=== PATIENT | male | born 1985 | race Caucasian/White ===

== ENCOUNTER 2016-12-03 10:35 | Emergency (ER) | payer OTHER ==
[2016-12-03 11:39] VITALS: BP 131/90
--- NOTE | 2016-12-03 14:51 | RAD ---
Indication: Axillary level posterior medial RIGHT arm pain following injury in the past few days. Skin discoloration. Comparison: No relevant prior exams available on the [facility] – [place], [place] PACS for comparison. Technique: Ultrasound of the medial posterior RIGHT upper arm. REPORT AND IMPRESSION: Corresponding with the region of clinical concern as directed by the patient at the time of the exam at level of the proximal triceps muscle there is partial muscle fiber discontinuity and infiltrative edema/hematoma consistent with a partial muscle tear. No significant loculated hematoma evident. Overlying soft tissue edema.
--- NOTE | 2016-12-03 16:45 | ED ---
Berta Orozco Edward, scribed for Caleb Hernandez MD on 12/03/16 at 1346 . Upper Extremity Pain - HPI Summary HPI Summary: 31 y/o male presents to ED c/o upper R arm edema and ecchymosis. The patient injured his R arm 2 weeks ago during an obstacle race and reinjured it 3 days ago ago. Patient states there is numbness in R forearm. Patient is otherwise asymptomatic. PMHx Fx L foot. - History of Current Complaint Chief Complaint: EDExtremityUpper Stated Complaint: ARM INJURY Time Seen by Provider: 12/03/16 13:40 Hx Obtained From: Patient Onset/Duration: Still Present Timing: Constant Associated Signs & Symptoms: Positive: Swelling, Bruising, Numbness/Tingling - R arm - Allergies/Home Medications Allergies/Adverse Reactions: Allergies Allergy/AdvReac Type Severity Reaction Status Date / Time No Known Allergies Allergy Verified 12/03/16 11:39 PMH/Surg Hx/FS Hx/Imm Hx Previously Healthy: No Musculoskeletal History: Reports: Other Musculoskeletal History - Lumbar herniation. Stress fx L foot Infectious Disease History: No Infectious Disease History: Denies: Traveled Outside the [place] in Last 30 Days - Family History Known Family History: Positive: Other - Pancreatic cancer on mother's side - Social History Occupation: Employed Full-time Lives: With Family Alcohol Use: None Substance Use Type: Reports: None Smoking Status (MU): Never Smoked Tobacco Review of Systems Constitutional: Negative Eyes: Negative ENT: Negative Cardiovascular: Negative Respiratory: Negative Gastrointestinal: Negative Genitourinary: Negative Positive: Edema - R bicep Positive: Bruising - R bicep Positive: Numbness - and tingling @ R forearm and fingers Psychological: Normal All Other Systems Reviewed And Are Negative: Yes Physical Exam Triage Information Reviewed: Yes Vital Signs On Initial Exam: Initial Vitals Temp Pulse Resp BP Pulse Ox 98.4 F 57 18 141/92 98 12/03/16 10:57 12/03/16 10:57 12/03/16 10:57 12/03/16 10:57 12/03/16 10:57 Vital Signs Reviewed: Yes Appearance: Positive: Well-Appearing, No Pain Distress Skin: Positive: Warm, Skin Color Reflects Adequate Perfusion, Dry Head/Face: Positive: Normal Head/Face Inspection Eyes: Positive: Normal ENT: Positive: Normal ENT inspection Neck: Positive: Supple, Nontender Respiratory/Lung Sounds: Positive: Clear to Auscultation, Breath Sounds Present Cardiovascular: Positive: RRR Abdomen Description: Positive: Nontender, Soft Bowel Sounds: Positive: Present Musculoskeletal: Positive: Other - Ecchymosis and swelling over medial distal arm, distal neurovascular intact Neurological: Positive: Normal Psychiatric: Positive: Normal, Affect/Mood Appropriate Diagnostics - Vital Signs Vital Signs Temp Pulse Resp BP Pulse Ox 12/03/16 11:37 97.7 F 57 16 131/90 100 12/03/16 10:57 98.4 F 57 18 141/92 98 - Laboratory Lab Statement: Any lab studies that have been ordered have been reviewed, and results considered in the medical decision making process. - Ultrasound No standard instances Ultrasound Interpretation: Positive (See Comments) - SOFT TISSUE US - Corresponding with the region of clinical concern as directed by the patient at the time of the exam at level of the proximal triceps muscle there is partial muscle fiber discontinuity and infiltrative edema/hematoma consistent with a partial muscle tear. No significant loculated hematoma evident. Overlying soft tissue edema. Ultrasound Interpretation Completed By: Radiologist Course/Dx - Course Course Of Treatment: Mr. Quesada hurt his right arm a couple of times in the last 2 weeks. It swelled up quite a bit and he was feeling numb. The swelling and numbness has improved althiugh he says it srill gfells a lottle nub on the dorsum of his forearm. He has swelling and ecchymosis on the volar distal arm. U's confirms that he has a partial tear of his triceps. His N/V/M is completely intact in the hand and forearm. He has been using ibuprofen and elevating it. I recommended that he continue with those and contacted Dr. Ledesma for F/U. He is at risk for compartment syndrome but does not have it now. - Diagnoses Provider Diagnoses: Other injury of muscle, fascia and tendon of triceps, left arm, initial encounter Discharge - Discharge Plan Condition: Stable Disposition: HOME Patient Education Materials: Muscle Strain (ED) Referrals: Jered Ledesma MD [Medical Doctor] - 3 Days (F/U in 2-3 days please) Additional Instructions: Continue Ibuprofen and elevation The documentation as recorded by the Berta landa Edward accurately reflects the service I personally performed and the decisions made by , Caleb Hernandez MD.
== END 2016-12-03 15:41 | disposition home or self-care (01) ==
LOC: ED 10:35
DX: S46.302A Unspecified injury of muscle, fascia and tendon of triceps, left arm, initial encounter (principal); S40.022A Contusion of left upper arm, initial encounter; R60.9 Edema, unspecified; X58.XXXA Exposure to other specified factors, initial encounter; Y93.9 Activity, unspecified; Y92.9 Unspecified place or not applicable
CPT/HCPCS: 99281